=== PATIENT | female | born 1985 | race Caucasian/White ===

== ENCOUNTER 2016-07-27 18:10 | Emergency (ER) | payer BC ==
--- NOTE | 2016-07-27 18:38 | EDPHY ---
H & P Time Seen by Provider: 07/27/16 18:36 HPI/ROS: CHIEF COMPLAINT: Headache, fever, myalgia, neck pain. HISTORY OF PRESENT ILLNESS: The patient is a 30-year-old female who presents with left-sided neck pain, fever, myalgia, and headache. Her symptoms began with neck stiffness 2 days ago and she developed the other symptoms yesterday. She has a moderate headache, that is alleviated with ibuprofen. Associated with diffuse myalgias. She denies abdominal pain, chest pain, shortness of breath, urinary symptoms, or other complaints. She did get a flu shot this year. She denies recent sick contact. She has been taking Ibuprofen for the pain and fever to moderate effect. No recent travel. REVIEW OF SYSTEMS: A complete 10-point review of systems was performed and is negative except for those items mentioned in the HPI. Past Medical/Surgical History: Denies. Social History: Recently moved to [place], mother of 2, . Smoking Status: Never smoked Physical Exam: General Appearance: Alert, non-toxic appearing Eyes: Pupils equal and round, no conjunctival pallor or injection ENT, Mouth: Mucous membranes moist Neck: Supple. Suprascapular tenderness bilaterally. Cervical paraspinous tenderness bilaterally. Respiratory: Lungs are clear to auscultation Cardiovascular: Regular rate and rhythm Gastrointestinal: Abdomen is soft and non-tender Neurological: Alert, oriented x3, cranial nerves II through XII intact, motor 5 /5, sensory intact to light touch, normal gait Skin: Warm and dry, no rash Extremities: Nontender, no pedal edema Psychiatric: Mood and affect normal Constitutional: Initial Vital Signs Temperature (C) 36.9 C 07/27/16 18:16 Heart Rate 96 07/27/16 18:16 Respiratory Rate 18 07/27/16 18:16 Blood Pressure 131/78 H 07/27/16 18:16 O2 Sat (%) 99 07/27/16 18:16 O2 Delivery Mode Room Air Allergies/Adverse Reactions: No Known Allergies Allergy (Unverified 07/27/16 18:19) Home Medications: Medication Instructions Recorded NK [No Known Home Meds] 07/27/16 Medical Decision Making ED Course/Re-evaluation: 30-year-old female presents with headache, myalgia, neck pain, and fever for the last two days. She has a negative exam other than tenderness in the cervical paraspinous muscles. Clinical presentation consistent with viral syndrome. I do not suspect meningitis in this well-appearing patient. Patient refuses influenza swab. Dip urinalysis is negative. I feel that she is safe and stable for discharge. Symptomatic treatment advised. Will return to the emergency department for worsening symptoms or other concerns. Differential Diagnosis: Differential diagnosis includes pneumonia, pyelonephritis, cholecystitis, influenza, cellulitis, pneumonia, abscess, meningitis. Departure - Departure Disposition: Home, Routine, Self-Care Clinical Impression: Viral syndrome Condition: Good Instructions: Viral Syndrome (ED) Additional Instructions: Drink plenty of fluids and be sure to get rest. Adult Pain & Fever Control: We recommend Acetaminophen (Tylenol) and Ibuprofen (Motrin,Advil) for pain and fever control. When fever is high or pain severe, both drugs can be used at the same time, but at different intervals. Please note the time differences. Your dose is: Acetaminophen 650mg every 4 to 6 hours Ibuprofen 600mg every 6-8 hours with food. Note: do not take Acetaminophen with Hydrocodone (Vicodin, Lortab) or Oycodone (Percocet). These medications also contain Acetaminophen. No more than 3000mg of Acetaminophen should be taken in 24 hours (for an adult). Follow up with a primary care provider for reevaluation. If you need a primary care provider you were given the telephone number of Dr. Bills, outpatient medicine. Return for any serious worsening of condition. Referrals: Heather Blils MD [[facility] [place] Primary Care Provider] - As per Instructions Report Scribed for: Thao Ha Report Scribed by: Bong Castillo Date of Report: 07/27/16 Time of Report: 18:37 Physician Review and Approval Statement: 07/27/16 18:37 Portions of this note were transcribed by a biomedical analytical scientist. I personally performed a history, physical exam, medical decision making, and confirmed accuracy of information the transcribed note.
[2016-07-27 19:27] VITALS: BP 128/71; PULSE 71; RESP 16; TEMP 97.9; O2SAT 96
== END 2016-07-27 19:26 | disposition home or self-care (01) ==
DX: B34.9 Viral infection, unspecified (principal)